=== PATIENT | male | born 1975 | race Caucasian/White ===

== ENCOUNTER → 2019-08-25 12:00 | Outpatient (BNVA) | payer BC, SELFPAY | PROVIDERS: Family Provider Nurse Practitioner Family; PCP Nurse Practitioner Family; Visit Provider Nurse Practitioner Family | DX: F41.9 Anxiety disorder, unspecified (principal); E55.9 Vitamin D deficiency, unspecified; E78.2 Mixed hyperlipidemia; Z79.899 Other long term (current) drug therapy; Z13.6 Encounter for screening for cardiovascular disorders | CPT/HCPCS: 80053; 80061; 81001; 82306; 83036; 84443; 85025 ==

== ENCOUNTER 2019-10-21 11:53 | Outpatient (CLI) | payer BC, SELFPAY ==
--- NOTE | 2019-10-21 11:58 | XR_ITS ---
WS: [id number] Lumbar spine, lateral in neutral, flexion and extension, AP, and L5-S1 spot, and both obliques. 2019 Clinical Data: low back pain Comparison: None. Findings: No compression fractures or subluxation is seen. There is disc space narrowing at L4-L5. Minimal ante rior osteoarthritic spurring is present at L3, L4 and L5. The oblique films show no spondylolysis. No subluxation is present. The transverse processes and SI joints are normal. There is no limitation of motion or subluxation on flexion or extension. XR/XR lumbar spine 6V w f/e [id number] Impression: 1. Degenerative disc narrowing at L4-L5. 2. Osteoarthritis of L3-L5. 3. No limitation of motion or subluxation on flexion or extension.
--- NOTE | 2019-10-21 11:58 | XR_ITS ---
WS: [id number] Right hip, AP and frog leg views, 10/21/2019 Clinical Data: right hip pain Comparison: None. Findings: There is a prominent acetabular lip. No fracture or dislocation is seen. The hip joint shows no narro wing, erosion or sclerosis. The adjacent right pelvis is unremarkable. The right SI joint and pubic s ymphysis are normal. The soft tissues are unremarkable. XR/XR hip RT 2-3V wo/w pel* [id number] Impression: Moderate osteoarthritis of the right hip.
== END 2019-10-21 11:54 | disposition home or self-care (01) ==
LOC: RAD 11:56
PROVIDERS: PCP Nurse Practitioner Family; Visit Provider Nurse Practitioner Family
DX: M51.36 Other intervertebral disc degeneration, lumbar region (principal); M47.816 Spondylosis without myelopathy or radiculopathy, lumbar region; M16.11 Unilateral primary osteoarthritis, right hip
CPT/HCPCS: 72114; 73502

== ENCOUNTER 2023-08-21 08:23 | Outpatient (CLI) | payer OTHER, SELFPAY ==
--- NOTE | 2023-08-21 08:27 | MR_ITS ---
WS: [id number] MRI RIGHT KNEE HISTORY: DERANGEMENT R KNEE COMPARISON: 07/28/2023 radiograph Anterior cruciate ligament: Moderate mucoid degeneration throughout the ACL but no tear. Posterior cruciate ligament: Intact. Medial collateral ligament: Intact. Posterior lateral corner structures: Intact. Medial menisci: Intrasubstance degeneration in the posterior horn. No tear. Lateral meniscus: Intact. Normal signal, size and shape. Extensor mechanism: Distal quadriceps tendon and patellar tendons are intact. Fluid and soft tissue: Very small suprapatellar joint effusion. Tiny amount of fluid in in the poplit eal pouch. Osseous and articular structures: Patellofemoral compartment: Normal. Medial compartment: Mild narrowing of the medial compartment. Mild thinning and fissuring of the cart ilage. No marrow edema. There is a small amount of marrow edema at the base of the tibial spines. Lateral compartment: Mild narrowing with thinning and fissuring of the cartilage. No marrow edema. There is a fluid-filled mass posterior to the distal femur near Jacques's canal. This is a well-circum scribed mass measuring 11 x 13 mm and is just medial to the femoral artery and vein. There is a conne ction via prominent vessel extending into the semimembranosus muscle. This is probably a muscular bra nch. Pseudoaneurysm needs to be excluded. MR/MR knee RT wo con* [id number] IMPRESSION: 1. Mild tricompartment arthritis. Mild chondromalacia in the medial and latera l compartments. 2. No meniscal tear. 3. Mucoid degeneration in the ACL. 4. Indeterminate fluid collection measures 11 x 13 mm posterior distal femur t hrough Jacques's canal. This is just medial to the femoral artery and vein and c onnects to a muscular branch within the semimembranosus muscle. This may be a p seudoaneurysm. Suggest ultrasound follow-up of this mass to evaluate for pseudo aneurysm or benign cyst.
== END 2023-08-21 08:24 | disposition home or self-care (01) ==
LOC: RAD 08:23
PROVIDERS: PCP Physician Assistant; Visit Provider Physician Assistant
DX: M23.91 Unspecified internal derangement of right knee (principal)
CPT/HCPCS: 73721

== ENCOUNTER → 2024-02-10 09:55 | Outpatient (BNVA) | payer OTHER, SELFPAY | PROVIDERS: PCP Physician Assistant; Visit Provider Emergency Medicine | DX: R06.02 Shortness of breath (principal) | CPT/HCPCS: 71046 ==

== ENCOUNTER 2024-04-23 20:09 | Emergency (ER) | payer OTHER, SELFPAY ==
[2024-04-23 20:12] VITALS: BP 126/83; PULSE 75; RESP 16; TEMP 36.5; O2SAT 96; BMI 28.3
--- NOTE | 2024-04-23 21:09 | USR_ITS ---
PROCEDURE INFORMATION: Exam: US Duplex Right Lower Extremity Veins, Limited Exam date and time: 04/23/2024 10:15 PM Age: 48 years old Clinical indication: Pain; Leg, lower; Right; Additional info: Pain, swelling behind the knee/calf TECHNIQUE: Imaging protocol: Real-time duplex ultrasound of the right extremity with 2-D sams scale, color Doppler flow and spectral waveform analysis including responses to compression and other maneuvers (when performed) with image documentation. Limited exam was focused on the right lower extremity veins. COMPARISON: MR knee RT wo con* [id number] 08/21/2023 8:57 AM FINDINGS: Right deep veins: Unremarkable. The common femoral, femoral, proximal profunda femoral and popliteal veins are patent without thrombus. Normal Doppler waveforms. Normal compressibility and/or augmentation response. Superficial veins: Greater saphenous vein at the saphenofemoral junction is patent without thrombus. Soft tissues: Unremarkable. US/[place] [id number] IMPRESSION: No evidence of deep vein thrombosis.
--- NOTE | 2024-04-23 21:14 | ED_ITS ---
HPI - Extremity Problem 2 General: Chief complaint: Extremity Injury, Lower Stated complaint: R Knee Pain Time Seen by Provider: 04/23/24 20:49 Source: patient Mode of arrival: ambulatory Limitations: no limitations History of Present Illness: Patient is a 48-year-old male that presents to the emergency department with continued right knee pain and swelling. He states this has been going on for about a year. He reports he saw an orthopedic doctor this week for steroid shot. He states orthopedic doctor reviewed an MRI that the patient had last year and thought that he had either a cyst or an aneurysm back there. The patient states he has had worsening burning sensation in the lower leg with some calf tenderness and swelling. He denies any history of blood clots in the past. He states he is a smoker. He denies any chest pain or shortness of breath. He presents to the emergency department for further evaluation and treatment. Associated symptoms: Deny chest pain or fever(s) Related Data Home Medications ?Medication ?Instructions ?Recorded ?Confirmed cholecalciferol (vitamin D3) 125 125 mcg PO DAILY 09/2402/10/24 mcg (5,000 unit) capsule Previous Rx's ?Medication ?Instructions ?Recorded paroxetine HCl 20 mg tablet 20 mg PO DAILY 30 days #30 tabs 10/16/20 albuterol sulfate 90 mcg/actuation 2 puff inhalation Q 6H PRN 02/10/24 aerosol inhaler shortness of breath or wheez ing #8.5 grams gempwnkzarexmlj-buxlyhroduszcly-WJ 5 ml PO Q6H PRN col d symptoms #118 02/10/24 2 mg-30 mg-10 mg/5 mL oral syrup mL (Bromfed DM) guaifenesin 600 mg tablet, 600 mg PO Q12H #20 tabs extended release 12 hr levofloxacin 750 mg tablet 750 mg PO DAILY 7 days #7 t abs 02/10/24 prednisone 20 mg tablet 20 mg PO DAILY 5 days #5 tab s 02/10/24 Allergies Allergy/AdvReac Type Severity Reaction Status Date / Time vortioxetine (From Allergy itching, Verified 02/10/24 09:45 Trintellix) rash, hypertension Review of Systems 2 General: Reports: 10 or more systems reviewed and unremarkable except in HPI and below Const: Denies: fever(s) or chills Eyes: Denies: eye discharge or eye redness ENMT: Reports: tinnitus (Chronic, unchanged); Denies: throat pain or ear or mastoid pain Card: Reports: edema (Right lower extremity, mild); Denies: chest pain, palpitations or irregular heart rhythm Resp: Denies: dyspnea, productive cough, non-productive cough or wheezing GI: Denies: abdominal pain, nausea or vomiting : Denies: flank pain or dysuria Musc: Reports: extremity pain (Right lower extremity starting at the knee and going down), joint pain (Right knee pain) and joint swelling (Right knee swelling); Denies: joint redness or joint warmth Skin/Breast: Reports: other (Mild bruising to the lateral aspect of the right knee) Neuro: Denies: headache(s), numbness in extremities or weakness in extremities Psych: Denies: anxiety Endo: Denies: polyuria or polydipsia Mert/Lymph: Denies: easy bleeding or petechiae All/Imm: Denies: throat swelling or tongue swelling PFSH ED 2 PFSH: Medical History DDD (degenerative disc disease), lumbar Arthritis Right ear pain Mixed hyperlipidemia Abnormal NCS (nerve conduction studies) Mild sleep apnea Anxiety Carpal tunnel syndrome Colonic polyp Vitamin D deficiency Surgical History H/O colonoscopy History of esophagogastroduodenoscopy (EGD) Status post appendectomy Family History Other Colon cancer Depression Rheumatoid arthritis Stroke Social History (Updated 04/23/24 @ 21:18 by JAIME Chino) Smoking and tobacco/nicotine status: current every day tobacco/nicotine user Physical Exam 2 Const: COMMON NORMALS: no acute distress, no limitations and alert GENERAL APPEARANCE: cooperative ORIENTATION/CONSCIOUSNESS: Yes awake HENMT: COMMON NORMALS: normocephalic, atraumatic, external ears normal and Normal external nose present HEAD & SCALP: normocephalic and atraumatic F ABDON & SINUS: normal facial exam NOSE: Normal external nose present E XTERNAL EAR: Yes external ears normal Eye: COMMON NORMALS: conjunctivae normal ALIGNMENT: Yes alignment normal CONJUNCTIVA: Yes conjunctivae normal Neck/C-Spine: COMMON NORMALS: full ROM Resp: COMMON NORMALS: normal respiratory effort, No retractions and clear to auscultation bilaterally AUSCULTATION: clear to auscultation bilaterally, no crackles, no rales, no rhonchi and no wheezes Cardio: COMMON NORMALS: regular rate and regular rhythm RATE: regular rate RHYTHM: regular rhythm GI: COMMON NORMALS: Soft to palpation and non-tender PALPATION: Yes Soft to palpation Back/Pelvis: COMMON NORMALS: no thoracic nor lumbar tenderness Extremity: COMMON NORMALS: negative for no calf tenderness (Mild tenderness behind the right knee and the upper right calf) and negative for no pedal edema RIGHT LOWER EXTREMITY: Yes knee joint Right knee: Yes palpation (Patient does have some posterior tenderness) and Yes lower leg Right lower leg: Yes palpation (Mild posterior tenderness on the right) Neuro: SENSORIUM/ORIENTATION: Yes alert Psych: COMMON NORMALS: mental status grossly normal and speech normal A TTITUDE: Yes calm SPEECH: Yes normal speech Skin: COMMON NORMALS: no rashes or lesions noted and no wounds GENERAL SKIN EXAM: no rashes or lesions noted and ecchymosis (Mild bruising to the lateral right knee at the site of the injection) Course 2 Vital Signs: Vital signs: Vital Signs Temperature 97.7 F 04/23/24 20:12 Pulse Rate 72 04/23/24 22:07 Respiratory Rate 18 04/23/24 22:07 Blood Pressure 134/69 04/23/24 22:07 Pulse Oximetry 95 04/23/24 22:07 Oxygen Delivery Me thod Room Air 04/23/24 22:07 MDM - Extremity (Nontraumatic) Medical Decision Making Patient was advised of the exam, lab and imaging findings. The patient does not have an elevated white blood cell count. He declined the Toradol injection. Patient declined an Abdon wrap, crutches or walker here. He is afebrile here and does not have an elevated white blood cell count or any other signs of acute infection. He does have some swelling and tenderness to the knee which is chronic. He did develop some increased posterior tenderness of the proximal calf but there is no sign of DVT on the ultrasound today. The patient was advised to follow-up with his orthopedic doctor for further evaluation and treatment of the knee. He may require a knee scope to help clean out the knee joint. The patient was advised to return immediately to the emergency department with any worsening symptoms. The patient expressed understanding. Differential Diagnosis Likely cellulitis, superficial thrombophlebitis, lower extremity edema and deep vein thrombosis of lower extremity Medical Records I reviewed the patient's medical records. Lab Data I reviewed the patient's lab results. 04/23/24 21:24 04/23/24 21:24 Radiology Impressions Venous Duplex 04/23/24 21:09 IMPRESSION: No evidence of deep vein thrombosis. Laboratory Results WBC 9.30 10^3/uL (3.29-11.43) 04/23/24 21: RBC 4.36 10^6/uL (3.85-5.65) 04/23/24 21: Hgb 14.20 g/dL (11.27-16.99) 04/23/24 21:24 Hct 41.3 % (37-53) 04/23/24 21: MCV 94.7 fl (82-101) 04/23/24 21: MCH 32.6 pg (27-33) 04/23/24 21: MCHC 34.4 g/dL (30-55) 04/23/24 21: RDW 12.4 % (12.1-15.1) 04/23/24 21: Plt Count 224 10^3/cmm (157-399) 04/23/24 21:24 MPV 9.4 fL (7.4-10.4) 04/23/24 21: Neut % (Auto) 47.6 % 04/23/24 21: Lymph % (Auto) 39.8 % 04/23/24 21:24 Gregg % (Auto) 7.0 % 04/23/24 21: Eos % (Auto) 3.9 % 04/23/24 21: Baso % (Auto) 0.8 % 04/23/24 21: Neut # (Auto) 4.44 10^3/uL (1.8-7.7) 04/23/24 21: Lymph # (Auto) 3.7 10^3/uL (0.8-4.8) 04/23/24 21: Gregg # (Auto) 0.7 10^3/uL (0.2-0.9) 04/23/24 21:24 Eos # (Auto) 0.4 10^3/uL (0.0-0.8) 04/23/24 21:24 Baso # (Auto) 0.1 10^3/uL (0.0-0.1) 04/23/24 21:24 Nucleated RBC % (auto) 0 % 04/23/24 21:24 Nucleated RBCs # 0.0 /100WBC 04/23/24 21:24 Sodium 138 mmol/L (136-145) 04/23/24 21:24 Potassium 3.8 mmol/L (3.5-5.1) 04/23/24 21:24 Chloride 101 mmol/L (98-107) 04/23/24 21:24 Carbon Dioxide 26 mmol/L (22-29) 04/23/24 21:24 Anion Gap 14.8 (5-19) 04/23/24 21:24 BUN 17 mg/dL (6-20) 04/23/24 21:24 Creatinine 0.8 mg/dL (0.7-1.2) 04/23/24 21:24 GFR Calculation 102.3 mL/min (90-130) 04/23/24 21:24 Glucose 108 mg/dL (65-115) 04/23/24 21:24 Calculated Osmolality 288 mOsm/kg (285-295) 04/23/24 21:24 Calcium 9.4 mg/dL (8.5-10.5) 04/23/24 21:24 Total Bilirubin 0.2 mg/dL (0.15-1.2) 04/23/24 21:24 AST 16 U/L (0-40) 04/23/24 21:24 ALT 22 U/L (0-41) 04/23/24 21:24 Alkaline Phosphatase 68 U/L (40-130) 04/23/24 21:24 Total Protein 6.9 g/dL (6.6-8.7) 04/23/24 21:24 Albumin 4.1 g/dL (3.5-5.2) 04/23/24 21:24 Globulin 2.8 g/dL (1.3-4.6) 04/23/24 21:24 Imaging Data US Vascular: Radiologist's impression: Procedure(s): [place] [id number] Accession Number(s): [id number] Report Number: [id number] PROCEDURE INFORMATION: Exam: US Duplex Right Lower Extremity Veins, Limited Exam date and time: 04/23/2024 10:15 PM Age: 48 years old Clinical indication: Pain; Leg, lower; Right; Additional info: Pain, swelling behind the knee/calf TECHNIQUE: Imaging protocol: Real-time duplex ultrasound of the right extremity with 2-D sams scale, color Doppler flow and spectral waveform analysis including responses to compression and other maneuvers (when performed) with image documentation. Limited exam was focused on the right lower extremity veins. COMPARISON: MR knee RT wo con* [id number] 08/21/2023 8:57 AM FINDINGS: Right deep veins: Unremarkable. The common femoral, femoral, proximal profunda femoral and popliteal veins are patent without thrombus. Normal Doppler waveforms. Normal compressibility and/or augmentation response. Superficial veins: Greater saphenous vein at the saphenofemoral junction is patent without thrombus. Soft tissues: Unremarkable. US/[place] [id number] IMPRESSION: No evidence of deep vein thrombosis. Dictated By: Estrada Fam MD All radiology interpretation(s) finalized by discharge Critical Care Time 2 Critical Care Time: Critical Care Time: No Discharge Plan Discharge Patient Disposition: Home Clinical Impression: Chronic pain of right knee, Swelling of joint, knee, right, Pain of right calf Condition: Stable Prescriptions: No Action cholecalciferol (vitamin D3) 125 mcg (5,000 unit) capsule 125 mcg PO DAILY albuterol sulfate 90 mcg/actuation HFA aerosol inhaler 2 puff inhalation Q6H PRN (Reason: shortness of breath or wheezing) Qty: 8.5 0RF osvawesfngchfym-pgjzphvqr-CY [Bromfed DM] 2-30-10 mg/5 mL syrup 5 ml PO Q6H PRN (Reason: cold symptoms) Qty: 118 0RF guaifenesin 600 mg tablet extended release 12hr 600 mg PO Q12H Qty: 20 0RF levofloxacin 750 mg tablet 750 mg PO DAILY 7 Days Qty: 7 0RF prednisone 20 mg tablet 20 mg PO DAILY 5 Days Qty: 5 0RF paroxetine HCl 20 mg tablet 20 mg PO DAILY 30 Days Qty: 30 0RF Discharge Orders: Discharge ED (Routine); Ordered 04/24/24 Ordered By: Joseph Chow Referrals: Pallavi Abel PA [Primary Care Provider] - Discharge Diet: Usual diet Discharge Activity: Increase activity as tolerated Patient Instructions: Opioid Safety, Pain Management, Knee Pain (ED), Swollen Knee Joint (ED) Activity Restrictions/Additional Instructions: Take the medication that was prescribed to you from the orthopedic doctor. Advance activity as tolerated. You may consider placing an Abdon wrap on the knee joint or buying an wuww-iwy-ceyxunr knee brace to help support the knee. Watch for any signs of infection such as fever, redness, heat to the joint etc. Follow-up with your orthopedic doctor for further evaluation and treatment. Return to the emergency department with any worsening symptoms. Print Language: Czech Coding Level of Care Code ED Classified Advertising Supervisor for Nae Macias
[2024-04-23 21:29] LABS: Basophils # 0.1 10^3/uL (0.0-0.1); Basophils % 0.8 %; Eosinophils # 0.4 10^3/uL (0.0-0.8); Eosinophils % 3.9 %; Hematocrit 41.3 % (37-53); Lymphocytes # 3.7 10^3/uL (0.8-4.8); Lymphocytes % 39.8 %; Mean Corpuscular HGB Conc 34.4 g/dL (30-55); Mean Corpuscular Hemoglobin 32.6 pg (27-33); Mean Corpuscular Volume 94.7 fl (82-101); Mean Platelet Volume 9.4 fL (7.4-10.4); Monocytes # 0.7 10^3/uL (0.2-0.9); Neutrophils # 4.44 10^3/uL (1.8-7.7); Neutrophils % 47.6 %; Nucleated Red Blood Cells % 0 %; Platelet Count 224 10^3/cmm (157-399); Red Blood Count 4.36 10^6/uL (3.85-5.65); Red Cell Distribution Width 12.4 % (12.1-15.1)
[2024-04-23 21:51] LABS: Alanine Aminotransferase 22 U/L (0-41); Albumin Level 4.1 g/dL (3.5-5.2); Alkaline Phosphatase 68 U/L (40-130); Anion Gap 14.8 (5-19); Aspartate Amino Transferase 16 U/L (0-40); Blood Urea Nitrogen 17 mg/dL (6-20); Calcium 9.4 mg/dL (8.5-10.5); Carbon Dioxide 26 mmol/L (22-29); Chloride 101 mmol/L (98-107); Creatinine Clr Calc Pharmacy 135.8575; Globulin 2.8 g/dL (1.3-4.6); Glomerular Filtration Rate 102.3 mL/min (90-130); Glucose 108 mg/dL (65-115); Osmolality Calculated 288 mOsm/kg (285-295); Potassium 3.8 mmol/L (3.5-5.1); Sodium 138 mmol/L (136-145); Total Bilirubin 0.2 mg/dL (0.15-1.2); Total Protein 6.9 g/dL (6.6-8.7)
[2024-04-23 22:07] VITALS: BP 134/69; PULSE 72; RESP 18; O2SAT 95
== END 2024-04-24 00:35 | disposition home or self-care (01) ==
PROVIDERS: Emergency Provider Physician Assistant; PCP Physician Assistant
DX: M25.561 Pain in right knee (principal); M25.461 Effusion, right knee; M79.604 Pain in right leg; Z72.0 Tobacco use; E78.2 Mixed hyperlipidemia
CPT/HCPCS: 12345; 80053; 85025; 93971; 99284

== ENCOUNTER 2025-01-23 06:48 | Outpatient (CLI) | payer OTHER, SELFPAY ==
--- NOTE | 2025-01-23 07:00 | MR_ITS ---
WS: [id number] MRI RIGHT KNEE HISTORY: SYNOVIAL CYST OF POPLITEAL SPACE OF RIGHT KNEE, history of meniscal repair. COMPARISON: 08/21/2023 Anterior cruciate ligament: Intermediate signal and thickening of the ACL consistent with mucoid degeneration. Majority of the fibers appear intact and normally oriented. Posterior cruciate ligament: Intact. Medial collateral ligament: Intact. Posterior lateral corner structures: Intact. Medial menisci: Intrasubstance degeneration in the posterior horn. No tear identified. Lateral meniscus: No tear identified. Similar to the prior study. Intermediate signal in the posterior horn from intrasubstance degeneration. No tear identified. Signal abnormalities most significant towards the meniscal root. Extensor mechanism: Distal quadriceps tendon and patellar tendons are intact. Fluid and soft tissue: Small suprapatellar joint effusion. Joint effusion has decreased since the prior study. Tiny amount of fluid in the region of the Galo's cyst. Reidentified is a T2 hyperintense collection measuring 2.1 x 1.0 x 1.7 cm medial to the distal femoral artery. Prominent vessel extending into the semimembranosus muscle. As described on the prior study of possible pseudoaneurysm associated with with a small arterial branch should be considered. Osseous and articular structures: Patellofemoral compartment: Mild narrowing of the lateral patellofemoral articulation. No marrow edema. No fracture. Medial compartment: Mild narrowing the medial compartment. Thinning and fissuring of the cartilage. Small marginal osteophytes. Lateral compartment: Mild narrowing of the lateral compartment with thinning and fissuring of the cartilage. Marrow edema and changes of osteonecrosis involving the lateral femoral condyle adjacent to the intercondylar notch. Area of bone abnormality measures 11 x 8 mm. Lobulated collection measuring 10 mm closely associated with the popliteus muscle and tendon. MR/MR knee RT wo con* [id number] IMPRESSION: 1. Tricompartment osteoarthritis with mild loss of cartilage and thinning and fissuring and joint space narrowing. Very similar to the study of 08/21/2023. 2. Development of osteonecrosis involving the lateral femoral condyle towards the intercondylar notch since the prior study of 08/21/2023. 3. Intrasubstance degeneration in the posterior horns of the medial and latera l meniscus. 4. Reidentified is a fluid collection measuring 2.1 x 1.0 x 1.7 cm medial to t he distal femoral artery. It does appear to be a connection to a small vessel f rom the semimembranosus muscle which is concerning for pseudoaneurysm. This can be evaluated by arterial ultrasound if clinically thought necessary. 5. Advanced mucoid degeneration of the ACL. 6. Small ganglion suspected associated with the popliteus tendon.
== END 2025-01-23 06:49 | disposition home or self-care (01) ==
LOC: RAD 06:49
PROVIDERS: PCP Physician Assistant; Visit Provider Physician Assistant
DX: M71.21 Synovial cyst of popliteal space [Baker], right knee (principal); M17.11 Unilateral primary osteoarthritis, right knee; M87.88 Other osteonecrosis, other site; M23.351 Other meniscus derangements, posterior horn of lateral meniscus, right knee; M23.321 Other meniscus derangements, posterior horn of medial meniscus, right knee; R93.6 Abnormal findings on diagnostic imaging of limbs; M23.8X1 Other internal derangements of right knee; M25.461 Effusion, right knee; M25.761 Osteophyte, right knee
CPT/HCPCS: 73721

== ENCOUNTER 2025-02-06 11:54 | Outpatient (CLI) | payer OTHER, SELFPAY ==
--- NOTE | 2025-02-06 12:00 | USR_ITS ---
PROCEDURE INFORMATION: Exam: US Duplex Right Lower Extremity Arteries Or Arterial Bypass Grafts Exam date and time: 02/06/2025 12:06 PM Age: 49 years old Clinical indication: Other: R/O potential pseudo visualized on mri; Prior surgery; Surgery date: 6+ months; Surgery type: Right knee scope; Additional info: Pseudoaneurysm TECHNIQUE: Imaging protocol: Right Real-time duplex scan of the arteries or arterial bypass grafts of the right lower extremity with 2-D sams scale, color Doppler flow and spectral waveform analysis. Images documented and saved. COMPARISON: MR knee RT wo con* [id number] 01/23/2025 7:15 AM FINDINGS: Right iliac artery: No occlusion or significant stenosis. Normal waveform. Right common femoral artery: No occlusion or significant stenosis. Normal waveform. Right superficial femoral artery: No occlusion or significant stenosis. Normal waveform. Right popliteal artery: No occlusion or significant stenosis. Normal waveform. Right calf/foot arteries: No occlusion or significant stenosis in the visualized arteries. Normal waveforms. Dorsalis pedis artery is patent. Soft tissues: No pseudoaneurysm identified sonographically. A small branch vessel was seen extending from the right mid superficial femoral artery. Other findings: Right ankle branchial index of 0.95. US/[place] [id number] IMPRESSION: 1. No occlusion or significant stenosis demonstrated in the right lower extremity arterial vasculature. 2. No pseudoaneurysm identified sonographically. If clinically warranted, follow-up CTA exam of the area of concern could be obtained to definitively exclude any arterial abnormality.
== END 2025-02-06 11:55 | disposition home or self-care (01) ==
LOC: RAD 11:56
PROVIDERS: PCP Physician Assistant; Visit Provider Physician Assistant
DX: I72.9 Aneurysm of unspecified site (principal)
CPT/HCPCS: 93926